=== PATIENT | male | born 1965 | race African-American/Black ===

== ENCOUNTER → 2016-10-12 11:13 | Day surgery (SDC) | payer OTHER ==
--- NOTE | 2016-09-23 07:56 | HP ---
PREOPERATIVE HISTORY AND PHYSICAL: DATE OF ADMISSION/SURGERY: 10/12/16 DATE OF OFFICE VISIT: 09/20/16 ATTENDING SURGEON: Dr. Karan Anglin. PROCEDURE: Right shoulder arthroscopic decompression, debridement, and possible rotator cuff repair. CHIEF COMPLAINT: Right shoulder pain. HISTORY OF PRESENT ILLNESS: Mr. Burroughs is a 50-year-old male who presents to the clinic for right shoulder pain. He had a right shoulder arthroscopy with labral repair of a SLAP tear in January [address] Tomás Murray. Since that time , he has had ongoing anterior shoulder pain that has failed conservative measures and has therefore agreed to undergo a right shoulder arthroscopic decompression, debridement, and possible rotator cuff repair with Dr. Anglin on 10/12/16. PAST MEDICAL HISTORY: Hypertension. PAST SURGICAL HISTORY: Right shoulder arthroscopy, labral repair, January 2015; left knee arthroscopy; appendectomy. MEDICATIONS: 1. Lisinopril and hydrochlorothiazide 20/25 mg 1 by mouth every day. 2. Norvasc 10 mg 1 by mouth every day. 3. Aleve 220 mg 2 by mouth twice a day as needed. 4. Nucynta 100 mg 1 by mouth every 6 hours as needed. 5. Flector 1.3% apply one patch to the skin twice a day to the painful shoulder. ALLERGIES: No known drug allergies. FAMILY HISTORY: Mother has a history of DVT and hypertension. Brother with a history of diabetes. SOCIAL HISTORY: He denies smoking. He occasionally drinks alcohol. He denies illegal drug use. REVIEW OF SYSTEMS: A 14-point review of systems was reviewed with the patient. Positive for hypertension and shortness of breath with exertion, otherwise negative. Negative for history of DVT, PE, chest pain, or bleeding disorder. Negative for prior problems with anesthesia. PHYSICAL EXAMINATION GENERAL: Well-developed, well-nourished, 50-year-old male in no acute distress. VITAL SIGNS: Height 70, weight 235, pulse 68, blood pressure 142/68, respiratory rate 16, BMI 37.7. HEENT: Normocephalic, atraumatic. PERRLA. NECK: Supple. Throat clear. PULMONARY: Lungs clear to auscultation bilaterally. No wheezing, rhonchi, or rales. CARDIO: Regular rate and rhythm. S1, S2. No murmurs, gallops, or rubs. No edema. ABDOMEN: Positive bowel sounds. Soft, nontender. NEURO: Alert and oriented x3. Cranial nerves grossly intact. Sensation intact to light touch distally. MUSCULOSKELETAL: Right upper extremity: The skin is intact. No obvious deformity. Forward flexion to 90, abduction to 80, external rotation to 20, internal rotation to the lateral hip. Pain and weakness with rotator cuff testing. Positive Neer, Buchanan-Faizan, and Speed's. +2 radial pulse. Sensation is intact to light touch distally. DIAGNOSTIC STUDIES: MRI revealed rotator cuff tendinopathy and labral fraying. IMPRESSION: Previous SLAP tear with persistent bicipital tendinitis and possible rotator cuff tear. PLAN: The patient is scheduled to undergo a right shoulder arthroscopic decompression, debridement, and possible rotator cuff repair with Dr. Anglin on 10/12/16. He recently had an episode of shortness of breath and was seen by Cardiology. He had a stress test which was normal. He is cleared for surgery. He will return to the office in 10 to 14 days postop for followup and suture removal. Percocet will be used for postoperative pain management. CAMILLE CHO [id number]/[facility] #: [id number] VANESSA
[~2016-10-12 11:13] MED LIST: Buffered Lidocaine 1% SYR 3ML* 3 ML/SYR SYRINGE INTRADERM ONE; Bupivacaine 0.25% SDV* 30 ML ONE; Cisatracurium* 2 MG/ML MDV 10 ML ONE; Dexamethasone IV* 4 MG/ML 1 ML (4 MG) ONE; DiMENhydriNATE IV* 50 MG/ML VIAL IV PUSH PRN; DiMENhydriNATE IV* 50 MG/ML VIAL ONE; EPHEDrine (Pressors)* 50 MG/ML VIAL ONE; Famotidine IV* 10 MG/ML 2 ML (20 mg) IV ONE; Famotidine IV* 10 MG/ML 2 ML (20 mg) ONE; HYDROmorphone INJ* 1 MG/ML CARPUJECT SYRINGE IV PRN; KETAMINE HCL* 50 MG/ML 10 ML VIAL ONE; Ketorolac INJ* 30 MG/ML 1 ML VIAL ONE; Labetalol IV* 5 MG/ML 20 ML VIAL ONE; Levalbuterol 0.63MG/3ML NEB INH PRN; Levalbuterol 1.25MG/0.5ML NEB ONE; Lidocaine 2% PF * 5 ML VIAL ONE; Metoclopramide TAB* 10 MG ONE; Metoclopramide TAB* 10 MG PO ONE; Midazolam* 1 MG/ML 5 ML VIAL (5 MG) ONE; Ondansetron INJ* 2 MG/ML VIAL IV PRN; Ondansetron INJ* 2 MG/ML VIAL ONE; Propofol* 10 MG/ML 20 ML BTL IV PUSH ONE; ROPIVACAINE 5 MG/ML 30 ML BTL (0.5%) ONE; ceFAZolin 2 GM PREMIX (*) 2 GM/50 ML BAG IVPB ONE; fentaNYL* 50 MCG/ML 2 ML VIAL (100 MCG VIAL) IV PRN; fentaNYL* 50 MCG/ML 5 ML VIAL (250 MCG VIAL) ONE; methylPREDNISolone ACETATE 80* 80 MG/ML 1 ML VIAL ONE; oxyCODONE/Acetamin 5/325 MG* TAB PO PRN
[2016-10-12 18:23] VITALS: BP 111/73
--- NOTE | 2016-10-13 11:59 | OP ---
DATE OF OPERATION: 10/12/16 [facility] DATE OF : 69 SURGEON: Karan Anglin MD CERTIFIER: CAMILLE Brito. An assistant head cashier was needed for the entirety of case to help with positioning, retraction and was utilized throughout all portions. ANESTHESIOLOGIST: Dr. Aguila. ANESTHESIA: General interscalene block. PRE-OP DIAGNOSIS: Right shoulder biceps tendinitis, subacromial impingement. POST-OP DIAGNOSIS: Failed SLAP repair, bicipital tendinitis and subacromial impingement. OPERATIVE PROCEDURE: Right shoulder arthroscopy with: 1. Extensive glenohumeral debridement including biceps tenotomy and debridement of the rotator cuff. 2. Removal of foreign body sutures x2. 3. Subacromial decompression with acromioplasty. 4. Subacromial injection of depomedrol. COMPLICATIONS: None. ESTIMATED BLOOD LOSS: Minimal. IMPLANTS: None. INDICATIONS: Jabari Burroughs is a 50-year-old male who has had work related injury for more than one year. He had previous surgery by Dr. Murray, which was for a SLAP repair which he initially was doing well and then started to have pain. We injected his biceps which brought him a lot of pain relief. He has had multiple other injections. He has had persistent pain and inability to return back to work at his previous functional level. He has been to the pain clinic and has failed conservative management. After approval from Workers' Compensation, he has elected to proceed with right shoulder arthroscopy with possible rotator cuff repair, biceps tenotomy as indicated and debridement. Risks included but are not limited to bleeding, infection, damage to nerves, vessels, surrounding structures, incomplete relief of symptoms, need for further surgery, worsening arthritis, persistent pain, stiffness, risk of anesthesia, and risk of DVT. He has elected to proceed. DESCRIPTION OF PROCEDURE: The patient was greeted in the preoperative area by the attending surgeon. Correct extremity was marked and consent was confirmed. He then underwent interscalene nerve block by the anesthesiologist in the preanesthesia area, after which the patient was brought back to the operating suite where he was placed in supine position on the operating table. He then underwent general anesthesia and endotracheal intubation, which he tolerated without difficulty. The patient was then placed in the left lateral decubitus position with an axillary roll. All bony prominences were padded and he was supported with a peg board. The right arm was draped with 10 pounds of traction. The right shoulder was then prepped and draped in the usual sterile fashion beginning with chlorhexidine soap and alcohol wipe and a final prep with ChloraPrep. After appropriate surgical pause indicating side, site and procedure, and administration of antibiotics, a standard posterolateral portal was made sharply with the 11 blade and scope was introduced into the joint and the joint was examined. There was abundant hyperemia and erythema all throughout the joint. The glenoid had grade 1 to 2 changes. The humeral head had grade 0 to 1 changes. The superior labrum SLAP repair had obviously failed but the anterior labrum was still intact. The anterior portal was made in an outside- in fashion and a shaver was introduced and this debrided back some portions of the anterior labrum, also a mild chondroplasty that was done superiorly. The anchor was mobilized and it was found to be completely torn and the sutures were not holding the tissue. At this point, the two sutures were removed superiorly using the shaver and the grasper. The biceps was then tenotomized using the arthroscopic scissors. The articular surface of the subscap though had some mild tearing, less than 5%. This was debrided back. The undersurface of the supraspinatus tendon had some mild partial thickness tearing. This was marked with the 18-gauge needle and a PDS suture was used to see where this was in the tendon and subacromial space. The tendon quality appeared to be in good condition, although mildly frayed. At this point, the debridement was complete and attention was directed to the subacromial space. The scope was repositioned in the subacromial space. There was abundant hyperemic bursa that was present. Lateral portal was made in an outside-in fashion and an extensive bursectomy was done. The undersurface of the acromion was identified and skeletonized. There was a moderate anterolateral spur which was debrided back, which was then taken down using a 4-0 dwayne. Once the bursectomy and acromioplasty was complete, all loose fluid and debris was removed. The cuff was examined and probed and was found to be intact. There was an obvious area of tearing. Decision was made to not do a rotator cuff repair. At this point, all fluid and debris was removed, but prior to this, an 18-gauge needle was arthroscopically placed to offer a later injection. The portals were closed with 3-0 nylon. The subacromial space was injected with 5 cc of Marcaine and 80 mg of Depo-Medrol. Sterile dressings were applied. He was placed in a regular sling and a Cryo/Cuff. He was then awoken from anesthesia, transferred to the PACU in stable condition. POSTOPERATIVE PLAN: He will be nonweightbearing. He will be allowed to work on range of motion as tolerated beginning on postoperative day one. I will place him in therapy next week. We will have him on Percocet for his pain control. In the interim, he will stop his Nucynta after discussion with Dr. Blackman. DVT prophylaxis was considered but deferred due to no previous personal or family history. I will see the patient back in 10 to 14 days. CC: PCP, Imtiaz Hills MD * [id number]/[facility] #: [id number] MTDD
== END | disposition home or self-care (01) ==
LOC: OR 11:13
PROVIDERS: ATTEND Orthopaedic Surgery
DX: M24.811 Other specific joint derangements of right shoulder, not elsewhere classified (principal); M75.21 Bicipital tendinitis, right shoulder; M75.41 Impingement syndrome of right shoulder; I10 Essential (primary) hypertension
CPT/HCPCS: A9270-GY; J0690; J1040; J1100; J1240; J1885; J2250; J2405; J2704; J2795; J3010

== ENCOUNTER 2016-11-24 09:54 | Emergency (ER) | payer BC, OTHER ==
[2016-11-24 12:42] VITALS: BP 180/96
--- NOTE | 2016-11-24 13:30 | UC ---
Van Parikh Matthew, scribed for Chanda Hill DO on 11/24/16 at 1049 . Hypertension HPI - HPI Summary HPI Summary: A 50 y/o male presents to [facility] hypertensive at 196/125 after being seen at Dr. Anglin's office. He states that he hasn't taken his blood pressure medication in 2-3 months, because he ran out of medication. He was unable to get into his PCP until December 24, 2016, so he decided to present to [facility] today. The patient is asymptomatic currently. He denies chest pain, SOB, abdominal/back pain, hematuria, visual changes, headache, left neck/jaw/arm pain and tinnitus. He has additional stress today after receiving a letter stating his employer wants to medical retire the patient. PMHx of HTN. The patient had a stress test about a year ago. - History of Current Complaint Chief Complaint: UCMedRefill Stated Complaint: MED REFILL Time Seen by Provider: 11/24/16 10:15 Hx Obtained From: Patient Onset/Duration: Still Present Timing: Constant Reported Blood Pressure Prior To Arrival:: 178/124 Associated Signs And Symptoms: Positive: Recent Stress. Negative: Chest Pain, Vision Changes, Headaches, Numbness, Tingling, Weakness, Dizziness, SOB - Allergies/Home Medications Allergies/Adverse Reactions: Allergies Allergy/AdvReac Type Severity Reaction Status Date / Time Penicillins Allergy Itching Verified 11/24/16 10:08 PMH/Surg Hx/FS Hx/Imm Hx Cardiovascular History Of: Reports: Hypertension - Surgical History Surgical History: Yes Surgery Procedure, Year, and Place: L KNEE SURGERY 1984. APPENDECTOMY 1995. right shoulder rotator cuff repair 2014 - Family History Known Family History: Positive: Hypertension, Diabetes - Social History Occupation: Employed Full-time Lives: With Family Alcohol Use: Weekly Alcohol Amount: weekends Substance Use Type: None Smoking Status (MU): Never Smoked Tobacco Review of Systems Constitutional: Negative Skin: Negative Eyes: Negative ENT: Negative Respiratory: Negative Cardiovascular: Negative Gastrointestinal: Negative Genitourinary: Negative Motor: Negative Neurovascular: Negative Musculoskeletal: Negative Neurological: Negative Psychological: Negative All Other Systems Reviewed And Are Negative: Yes Physical Exam Triage Information Reviewed: Yes Appearance: Well-Appearing, No Pain Distress, Well-Nourished Vital Signs: Initial Vital Signs Temp 97.7 F 11/24/16 10:01 Pulse 81 11/24/16 10:01 Resp 20 11/24/16 10:01 BP 196/125 11/24/16 10:01 Pulse Ox 98 11/24/16 10:01 Vital Signs Reviewed: Yes Eyes: Positive: Conjunctiva Clear. Negative: Discharge ENT: Positive: Hearing grossly normal. Negative: Muffled/hoarse voice Neck exam: Normal Neck: Positive: Supple Respiratory: Positive: Lungs clear, Normal breath sounds, No respiratory distress, No accessory muscle use Cardiovascular: Positive: RRR, No Murmur Abdomen Description: Positive: Nontender, Soft Bowel Sounds: Positive: Present Musculoskeletal Exam: Normal Musculoskeletal: Positive: Strength Intact Neurological: Positive: Alert, Muscle Tone Normal, Other: - A&Ox3, CN II-XII INTACT, SENSORY MOTOR INTACT, REFLEXES INTACT, NO CEREBELLAR SIGNS, FACIAL SYMMETRY, NEGATIVE ROMBERG, NORMAL GAIT Psychological: Positive: Age Appropriate Behavior Skin Exam: Normal, Other - warm, dry, normal color Diagnostics - EKG Cardiac Rate: NL - 95 bpm Cardiac Rhythm: Sinus: Normal - LVH consistent with prior EKG on 01/16/15; The prior EKG was difficulty to read from poor quaility. Hypertension Course/Dx - Differential Dx/Diagnosis Differential Diagnosis/HQI PQRI: Hypertension Provider Diagnoses: hypertension, med refill - Physician Notifications Discussed Patient Care With: Vane Parada (PCP Office) at 11:10 - Verified the patients blood pressure medication dosage and scheduled an appointment for the patient next Monday at 10:00am. Discharge - Discharge Plan Condition: Stable Disposition: HOME Prescriptions: Amlodipine Besylate [Norvasc 10 mg tab] 10 mg PO DAILY #30 tab Lisinopril/HCTZ 20/25(NF) [Zestoretic 20/25(NF)] 1 tab PO DAILY #30 tab Patient Education Materials: Hypertension (ED) Referrals: Imtiaz Hills MD [Primary Care Provider] - 11/30/16 10:00 am Additional Instructions: YOUR BLOOD PRESSURE WAS ELEVATED AT THIS VISIT 196/125. THIS IS PROBABLY THE RESULT OF BEING OFF OF YOUR BLOOD PRESSURE MEDICATION FOR 3 MONTHS. THIS SHOULD BE FOLLOWED BY YOUR PCP. RE-CHECK YOU BP AT LEAST 2 TIMES EACH DAY BETWEEN NOW AND THEN. BE SURE TO RELAX FOR 5 MINUTES PRIOR TO CHECKING. RECORD THE RESULTS AND BRING THEM WITH YOU TO YOUR PCP'S OFFICE ALONG WITH YOUR HOME CUFF FOR CALIBRATION WITH YOUR PCP'S OFFICE CUFF. IF YOU DEVELOP ANY NEW SYMPTOMS SUCH DIZZINESS, SHORTNESS OF BREATH, HEAD ACHE, VISUAL CHANGES, CHEST PAIN, NAUSEA OR VOMITING, BLOOD IN YOUR URINE, LIGHTHEADEDNESS, OR ANY OTHER CONCERNING NEW SYMPTOM, GO TO THE ED IMMEDIATELY. The documentation as recorded by the Van menezes Matthew accurately reflects the service I personally performed and the decisions made by me, Chanda Hill DO.
== END 2016-11-24 12:14 | disposition home or self-care (01) ==
LOC: UCEAST 09:54
DX: I10 Essential (primary) hypertension (principal); Z88.0 Allergy status to penicillin
CPT/HCPCS: 81003; 93005; 99212; G0463